=== PATIENT | female | born 1940 | race Caucasian/White ===

== ENCOUNTER → 2016-10-11 | Outpatient (CLI) | payer OTHER ==
[~2016-10-11] MED LIST: AMARYL PO; ASPIRIN81 M2; B12 5,000 MCG1 EACH; BACTRIM 400-801 TA1; BACTRIM 400-801 TA1 PO; BACTRIM DS TABL1 TAB PO; BONIVA150 MG PO; CALCIUM CARBON600 M1 PO; CERTAGEN PO; COUMADIN5 MG PO; CVS EAR CARE F; FOSAMAX35 MG PO; IMURAN50 MG PO; LANTUS100 U/ML SUBQ; LANTUS100 UNITS/; LORTAB 5/500 TA1 TA1 PO; LOVENOX80 MG/0.8 INJ; MOTRIN400 MG PO; MULTI VITAMIN1 EACH PO; OSCAL D; OYSTER SHELL C500 MG PO; PREDNISONE PO; PREDNISONE2.5 MG PO; PRINIVIL5 MG PO; PROGRAF0.5 MG PO; PROGRAF1 MG PO; SIMVASTATIN20 MG PO; STARLIX PO; STARLIX60 MG PO; TACROLIMUS1 M1 PO; ULTRAM PO; VITAL-D RX TABL1 TAB; VITAMIN B-1000 MCG/1; VITAMIN D50000 UNIT PO; WARFARIN SODIU2.5 M1 PO; ZOCOR PO; [UNRECOGNIZED DRUG - OTHER]; [UNRECOGNIZED DRUG - OTHER]
--- NOTE | ~2016-10-11 | MY11 ---
[facility] A Service of [facility] RADIOLOGY TEXT RESULTS PATIENT: FRANKLIN CAMPUZANO LOCATION: [facility] : 42 UNIT #: [id number] AGE: [address]: Hallie Rodriguez MD SEX: F ORDER DR: [id number] [place] [id number] O MR#: [id number] Acc #: [id number] NAME: FRANKLIN CAMPUZANO : 1940 SEX: F STUDY DATE/TIME: 10/11/2016 10:45 UNIT: [facility] ROOM: STUDY DESCRIPTION: MY Mammogram Screening Dig Elijah Attending Physician: Hallie Rodriguez M.D. Referring Physician: Hallie Rodirguez M.D. Ordering Physician: Hallie Rodriguez M.D. Primary Care Physician: Hallie Rodriguez M.D. MEDICAL IMAGING REPORT This report is preliminary unless electronic signature is present. EXAM Digital screening mammogram, 10/11/2016 HISTORY 75-year-old woman no risk elevation. Annual screening. COMPARISON mammograms date to 02/04/2005 with most recent screening comparison 10/06/2015. FINDINGS Digital imaging of each breast was completed utilizing a two-view examination of each breast in craniocaudal and mediolateral-oblique projections. Review and interpretation of digital mammograms include a second review in conjunction with FDA-approved CAD device. There is a normal parenchymal presentation bilaterally consistent with the patient's age. There are no breast masses imaged and no parenchymal asymmetry is visualized. There are no suspicious microcalcifications and I see no focal architectural disturbance. IMPRESSION Negative screening digital mammogram. One-year followup recommended. Patients over the age of 40 are entered into a reminder system with target due date for the next mammogram. A result letter will also be sent to the patient. BIRADS: 1 Negative ADDENDUM Breast parenchyma is fatty replaced. [facility] A Service of [facility] RADIOLOGY TEXT RESULTS PATIENT: FRANKLIN CAMPUZANO LOCATION: [facility] : 42 UNIT #: [id number] AGE: [address]: Hallie Rodriguez MD SEX: F ORDER DR: Dictated by... Davian Gomez M.D. THIS IS AN ELECTRONICALLY VERIFIED REPORT Davian Gomez M.D. at 10/11/2016 2:38 PM Homer TD: 10/11/2016 12:55 JOB #: [id number] MEDICAL IMAGING REPORT Page 1 of 1
== END | disposition home or self-care (01) ==
LOC: SMAM 10:09
DX: Z12.31 Encounter for screening mammogram for malignant neoplasm of breast (principal)
CPT/HCPCS: G0202